=== PATIENT | female | born 1960 | race Caucasian/White ===

== ENCOUNTER 2018-08-13 08:32 | Emergency (ER) | payer OTHER, SELFPAY ==
--- OUTSIDE RECORDS SUMMARY | 2018-08-13 08:34 | XMS REPORT ---
:1960 [facility] [address] [place] [address] Care Team Providers Name Role Phone Dg Ayde Unavailable Unavailable DR VASU GRIFFIN Unavailable Unavailable Problems This patient has no known problems. Allergies, Adverse Reactions, Alerts This patient has no known allergies or adverse reactions. Medications This patient has no known medications. Encounters Start End Encounter Admission Attending Care Care Encounter Date/Time Date/Time Type Type Clinicians Facility Department ID 2017-07-02 2017-07-02 Outpatient VikyALEXANDRA ortiz ALEXANDRA [id number] 14:56:00 14:56:00 Ayde 2017-03-21 2017-03-21 Outpatient ALEXANDRA Conte ALEXANDRA [id number] 14:07:00 14:07:00 Ayde Results Test Description Test Time Test Comments Text Results Atomic Results Result Comments SHOULDER LEFT 3 2016-11-12 14:31:05 Left shoulder, 3 viewsLocation Code: VIEWS*GP* [id number] HISTORY: lt shoulder painCOMMENTS: AP views in internal and external rotation along with a transscapularY view of the left shoulder were obtained. There is no acute fracture ormalalignment. Mild glenohumeral and clavicular arthrosis. The soft tissues areunremarkable.IMPRESSION: No acute abnormality. Mild arthrosis.
--- OUTSIDE RECORDS SUMMARY | 2018-08-13 08:34 | XMS REPORT | Clinical Summary ---
:1960 Author Organization [facility] Address [address] [place] [address] Care Team Providers Name Role Phone Tong Frazier Bulmaro Primary Care Provider Unavailable Allergies No Known Allergies Medications Medication Sig Dispensed Refills Start Date End Date Status HYDROcodone-acetaminoph Take 1 tablet by 0 Active en (NORCO 10-325) mouth every 6 10-325 mg per tablet (six) hours as needed for Pain. carisoprodol (SOMA) 350 Take 350 mg by 0 Active MG tablet mouth 4 (four) times daily as needed for Muscle spasms. LORazepam (ATIVAN) 0.5 Take 0.5 mg by 0 Active MG tablet mouth every 6 (six) hours as needed for Anxiety. zolpidem (AMBIEN) 10 mg Take 10 mg by 0 Active tablet mouth every night as needed for Insomnia. Active Problems Not on file Social History Tobacco Use Types Packs/Day Years Used Date Light Tobacco Smoker Alcohol Use Drinks/Week oz/Week Comments Yes occasion Sex Assigned at Date Recorded Not on file Job Start Date Occupation Industry Not on file Not on file Not on file Travel History Travel Start Travel End No recent travel history available. Last Filed Vital Signs Not on file Plan of Treatment Not on file Results Not on fileafter 08/12/2017
[2018-08-13] MEDS ORDERED: DERMABOND SKIN ADHESIVE TOP ONE (09:48)
--- NOTE | 2018-08-13 09:57 | ER ---
Nurse's Notes [facility] Name: Zohreh Carbajal Age: 58 yrs Sex: Female : 1960 Arrival Date: 08/13/2018 Time: 08:33 Bed 16 Private MD: Diagnosis: Contusion of right hip;Laceration without foreign body of left hand Presentation: 08/13 08:35 Presenting complaint: Patient states: LEFT HAND LACERATION. Transition of care: patient bp was not received from another setting of care. Complicating Factors: There are no complicating factors for this patient. Onset of symptoms was August 12, 2018 at 17:00. Risk Assessment: Do you want to hurt yourself or someone else? Patient reports no desire to harm self or others. Initial Sepsis Screen: Does the patient meet any 2 criteria? No. Patient's initial sepsis screen is negative. Does the patient have a suspected source of infection? No. Patient's initial sepsis screen is negative. Care prior to arrival: None. 08:35 Method Of Arrival: Ambulatory bp 08:35 Acuity: LUIS 3 bp Triage Assessment: 08:35 General: Appears in no apparent distress. comfortable, slender, Behavior is bp cooperative, appropriate for age, anxious. Pain: Complains of pain in palm of left hand. EENT: No deficits noted. Neuro: No deficits noted. Cardiovascular: No deficits noted. Respiratory: Airway is patent Respiratory effort is even, unlabored, Respiratory pattern is regular, symmetrical. GI: No signs and/or symptoms were reported involving the gastrointestinal system. : No signs and/or symptoms were reported regarding the genitourinary system. Derm: No deficits noted. Musculoskeletal: Circulation, motion, and sensation intact. Range of motion: intact in all extremities. Injury Description: Laceration sustained to palm of left hand. Historical: - Allergies: 09:10 No Known Allergies; bp - Home Meds: 09:10 None [Active]; bp - PMHx: 09:10 None; bp - Immunization history:: Last tetanus immunization: up to date. - Social history:: Smoking status: Patient uses tobacco products, unknown amount Patient uses alcohol. - Ebola Screening: : No symptoms or risks identified at this time. Screenin:35 Abuse screen: Denies threats or abuse. Denies injuries from another. Nutritional bp screening: No deficits noted. Tuberculosis screening: No symptoms or risk factors identified. Fall Risk None identified. Assessment: 08:35 General: SEE TRIAGE NOTE. bp 09:30 Reassessment: PRESSURE DRESSING IN PLACE, BLEEDING CONTROLLED AT THIS TIME. bp 10:29 Reassessment: NO FURTHER BLEEDING NOTED, STERI-STRIP AND CHANI APPLIED. PT D/C HOME bp AMBULATORY WITH FAMILY, DX WITH LACERATION WITHOUT FOREIGN BODY. Vital Signs: 08:35 BP 142 / 71; Pulse 93; Resp 16; Temp 98.1; Pulse Ox 99% ; Weight 54.43 kg; Height 5 ft. bp 5 in. (165.10 cm); 09:00 BP 128 / 78; Pulse 79; Resp 14; Temp 98.1; Pulse Ox 99% ; bp 10:30 BP 131 / 75; Pulse 75; Resp 16; Temp 98.1; Pulse Ox 99% ; bp 08:35 Body Mass Index 19.97 (54.43 kg, 165.10 cm) bp ED Course: 08:33 Patient arrived in ED. as 08:33 Easton Cagle, RN is Primary Nurse. bp 08:35 Patient has correct armband on for positive identification. Bed in low position. Call bp light in reach. Side rails up X2. Adult w/ patient. 08:41 [facility]C [facility] kb 08:41 Baldo De Paz MD is Attending Physician. kb 08:45 Wound care: to laceration located on palm of left hand was cleaned with. bp 09:01 Triage completed. bp 09:09 Arm band placed on. bp 09:43 Assist provider with laceration repair on palm of left hand that was between 2.6 to 7.5 bp cm using Dermabond. 10:15 Wound care: WOUND DRESSING ON HAND . mh5 10:31 Patient did not have IV access during this emergency room visit. bp Administered Medications: No medications were administered Outcome: 09:56 Discharge ordered by . kb 10:29 Patient left the ED. eb 10:35 Discharged to home ambulatory, with family. bp 10:35 Condition: stable 10:35 Discharge instructions given to patient, Instructed on discharge instructions, follow up and referral plans. wound care, Demonstrated understanding of instructions, follow-up care, wound care. Signatures: Susan Frye FNP-C FNP-Ashley Stallings [facility] Easton Cagle, JAX RN Livier Haines
--- NOTE | 2018-08-13 09:57 | EDPHYS ---
Physician Documentation [facility] Name: Zohreh Carbajal Age: 58 yrs Sex: Female : 1960 Arrival Date: 08/13/2018 Time: 08:33 Bed 16 Private MD: ED Physician Baldo De Paz HPI: 08/13 08:53 This 58 yrs old Female presents to ER via Unassigned with complaints of kb Laceration To Hand. 08:53 The patient has a laceration related to: falling from a standing position, occurred at home, and there are no complicating factors. The injury was accidental. The laceration(s) is(are) located on the palm of left hand. Onset: The symptoms/episode began/occurred yesterday, at 17:00. Associated signs and symptoms: Pertinent positives: heavy bleeding, Pertinent negatives: deformity, dizziness, loss of consciousness, numbness distal to injury, suspected foreign body. The patient has not experienced similar symptoms in the past. The patient has not recently seen a physician. Pt reports she fell from standing last night. Had a glass of water in her hand that broke when she fell and cut her hand. Reports bleeding hasn't stopped since it happened at 1700. Reports it starts bleeding every time she moves her thumb. Last tetanus shot one year ago. . Historical: - Allergies: 09:10 No Known Allergies; bp - Home Meds: 09:10 None [Active]; bp - PMHx: 09:10 None; bp - Immunization history:: Last tetanus immunization: up to date. - Social history:: Smoking status: Patient uses tobacco products, unknown amount Patient uses alcohol. - Ebola Screening: : No symptoms or risks identified at this time. ROS: 08:49 Constitutional: Negative for fever, chills, and weight loss, Cardiovascular: Negative kb for chest pain, palpitations, and edema, Respiratory: Negative for shortness of breath, cough, wheezing, and pleuritic chest pain, Abdomen/GI: Negative for abdominal pain, nausea, vomiting, diarrhea, and constipation, MS/Extremity: Negative for injury and deformity, Neuro: Negative for headache, weakness, numbness, tingling, and seizure. 08:49 Skin: Positive for laceration(s), of the palm of left hand. Exam: 08:52 Constitutional: This is a well developed, well nourished patient who is awake, alert, kb and in no acute distress. Head/Face: Normocephalic, atraumatic. Neck: Trachea midline, no thyromegaly or masses palpated, and no cervical lymphadenopathy. Supple, full range of motion without nuchal rigidity, or vertebral point tenderness. No Meningismus. Chest/axilla: Normal chest wall appearance and motion. Nontender with no deformity. No lesions are appreciated. Cardiovascular: Regular rate and rhythm with a normal S1 and S2. No gallops, murmurs, or rubs. Normal PMI, no JVD. No pulse deficits. Respiratory: Lungs have equal breath sounds bilaterally, clear to auscultation and percussion. No rales, rhonchi or wheezes noted. No increased work of breathing, no retractions or nasal flaring. Abdomen/GI: Soft, non-tender, with normal bowel sounds. No distension or tympany. No guarding or rebound. No evidence of tenderness throughout. Neuro: Awake and alert, GCS 15, oriented to person, place, time, and situation. Cranial nerves II-XII grossly intact. Motor strength 5/5 in all extremities. Sensory grossly intact. Cerebellar exam normal. Normal gait. 08:52 Skin: injury, laceration(s), the wound is approximately 1 cm(s), of the palm of left hand, that can be described as clean, no foreign body, linear, with moderate bleeding. 08:59 Musculoskeletal/extremity: Extremities: grossly normal except: noted in the right hip: kb contusion, ecchymosis, tenderness, ROM: intact in all extremities, Circulation is intact in all extremities. Sensation intact. Vital Signs: 08:35 BP 142 / 71; Pulse 93; Resp 16; Temp 98.1; Pulse Ox 99% ; Weight 54.43 kg; Height 5 ft. bp 5 in. (165.10 cm); 09:00 BP 128 / 78; Pulse 79; Resp 14; Temp 98.1; Pulse Ox 99% ; bp 10:30 BP 131 / 75; Pulse 75; Resp 16; Temp 98.1; Pulse Ox 99% ; bp 08:35 Body Mass Index 19.97 (54.43 kg, 165.10 cm) bp Laceration: 09:55 Wound Repair of 1cm ( 0.4in ) subcutaneous laceration to palm of left hand. Irregularly kb shaped.. Distal neuro/vascular/tendon intact. Wound prep: Extensive cleansing with hibiclenz by nurse, Wound irrigation with saline by nurse. Skin closed with thin layer Adhesive skin closure using Dermabond. Dressed with non-adherent dressing. Patient tolerated well. MDM: 08:41 Patient medically screened. kb 08:51 Data reviewed: vital signs, nurses notes. Data interpreted: Pulse oximetry: on room air kb is 98 %. Interpretation: normal. Counseling: I had a detailed discussion with the patient and/or guardian regarding: the historical points, exam findings, and any diagnostic results supporting the discharge/admit diagnosis, the need for outpatient follow up, a family practitioner, to return to the emergency department if symptoms worsen or persist or if there are any questions or concerns that arise at home. 09:27 ED course: Pt refuses x-ray of right hip.. kb 09:34 ED course: Bleeding has stopped. Pt prefers dermabond over sutures. Will dermabond and kb redress.. 08/13 08:41 Order name: Wound dressing; Complete Time: 08:59 kb 08/13 08:41 Order name: Wound Care; Complete Time: 08:59 kb 08/13 09:33 Order name: Dermabond; Complete Time: 09:40 kb Administered Medications: No medications were administered Disposition: 16:58 Co-signature as Attending Physician, Baldo De Paz MD. rn Disposition: 08/13/18 09:56 Discharged to Home. Impression: Contusion of right hip, Laceration without foreign body of left hand. - Condition is Stable. - Discharge Instructions: Laceration Care, Adult, Gupt-[id number]. - Medication Reconciliation Form, Thank You Letter, Antibiotic Education, Prescription Opioid Use form. Signatures: Susan Frye, OUTSOLE COMPRESSOR-C OUTSOLE COMPRESSOR-Ckb Baldo De Paz MD MD rn Peltier, Brian, RN RN bp Botello, Elizabeth eb Corrections: (The following items were deleted from the chart) 09:00 08:52 Constitutional: This is a well developed, well nourished patient who is awake, kb alert, and in no acute distress. Head/Face: Normocephalic, atraumatic. Neck: Trachea midline, no thyromegaly or masses palpated, and no cervical lymphadenopathy. Supple, full range of motion without nuchal rigidity, or vertebral point tenderness. No Meningismus. Chest/axilla: Normal chest wall appearance and motion. Nontender with no deformity. No lesions are appreciated. Cardiovascular: Regular rate and rhythm with a normal S1 and S2. No gallops, murmurs, or rubs. Normal PMI, no JVD. No pulse deficits. Respiratory: Lungs have equal breath sounds bilaterally, clear to auscultation and percussion. No rales, rhonchi or wheezes noted. No increased work of breathing, no retractions or nasal flaring. Abdomen/GI: Soft, non-tender, with normal bowel sounds. No distension or tympany. No guarding or rebound. No evidence of tenderness throughout. MS/ Extremity: Pulses equal, no cyanosis. Neurovascular intact. Full, normal range of motion. Neuro: Awake and alert, GCS 15, oriented to person, place, time, and situation. Cranial nerves II-XII grossly intact. Motor strength 5/5 in all extremities. Sensory grossly intact. Cerebellar exam normal. Normal gait. kb 10:29 09:56 08/13/2018 09:56 Discharged to Home. Impression: Contusion of right hip; eb Laceration without foreign body of left hand. Condition is Stable. Forms are Medication Reconciliation Form, Thank You Letter, Antibiotic Education, Prescription Opioid Use. kb
[2018-08-13] MEDS ORDERED: Mastisol Adhesive Liq ONE (09:59)
== END 2018-08-13 10:29 | disposition home or self-care (01) ==
LOC: ER 08:32
PROC: 0JQK0ZZ Repair Left Hand Subcutaneous Tissue and Fascia, Open Approach (ICD-10-PCS; principal; 2018-08-13)
DX: S61.412A Laceration without foreign body of left hand, initial encounter (principal); S70.01XA Contusion of right hip, initial encounter; W01.110A Fall on same level from slipping, tripping and stumbling with subsequent striking against sharp glass, initial encounter; Z72.0 Tobacco use
CPT/HCPCS: 99284